=== PATIENT | female | born 2000 | race Caucasian/White ===

== ENCOUNTER 2023-03-28 19:06 | Emergency (ER) | payer MEDICAID, OTHER ==
[~2023-03-28] VITALS: Ht 177.8 cm; Wt 63.9 kg
[2023-03-28] MEDS ORDERED: ACETAMINOPHEN 325 MG TAB PO ONE (19:45)
[2023-03-28 20:12] LABS: Urine Bacteria FEW /hpf (None Seen); Urine Blood Negative /uL (Negative); Urine Clarity HAZY (Clear); Urine Color Yellow (Yellow); Urine Mucus FEW (None Seen); Urine Protein, UAD Negative (Negative); Urine Specific Gravity 1.019 (1.001-1.035); Urine Urobilinogen Normal (Negative); Urine WBC 18 /hpf (0 - 5); Urine pH 5.5 (5.0-8.0)
[2023-03-28] MEDS ORDERED: NITR-87 PO (21:09)
[2023-03-28 21:33] VITALS: BP 110/70; PULSE 80; RESP 18; TEMP 97.8; O2SAT 98
== END 2023-03-28 21:35 | disposition home or self-care (01) ==
LOC: ER 19:06
DX: O23.41 Unspecified infection of urinary tract in pregnancy, first trimester (principal); R10.2 Pelvic and perineal pain; N39.0 Urinary tract infection, site not specified; Z3A.01 Less than 8 weeks gestation of pregnancy; V43.62XA Car passenger injured in collision with other type car in traffic accident, initial encounter; Y93.89 Activity, other specified; Y92.488 Other paved roadways as the place of occurrence of the external cause; Y99.8 Other external cause status
CPT/HCPCS: 36415; 81001; 84702

== ENCOUNTER 2023-05-10 16:41 | Emergency (ER) | payer MEDICAID, OTHER ==
[~2023-05-10] VITALS: Ht 177.8 cm; Wt 63.0 kg
[~2023-05-10 16:41] MED LIST: NITR-87 PO
[2023-05-10 17:11] VITALS: BP 122/93; PULSE 123; RESP 18; TEMP 97.9; O2SAT 97
[2023-05-10] MEDS ORDERED: DIPH25CA66 PO (17:25)
[2023-05-10] MEDS ORDERED: AZIT-81 PO (17:25)
== END 2023-05-10 17:31 | disposition home or self-care (01) ==
LOC: ER 16:41
DX: O99.511 Diseases of the respiratory system complicating pregnancy, first trimester (principal); J03.90 Acute tonsillitis, unspecified; R09.81 Nasal congestion; Z3A.12 12 weeks gestation of pregnancy; Z79.899 Other long term (current) drug therapy

== ENCOUNTER 2025-08-09 11:14 | Emergency (ER) | payer SELFPAY, MEDICAID ==
[~2025-08-09] VITALS: Ht 175.3 cm; Wt 102.5 kg
[~2025-08-09 11:14] MED LIST changes: +AZIT-185 PO; +DIPH25CA66 PO
--- NOTE | 2025-08-09 12:06 | ED.PDOC ---
History of Present Illness HPI Comments This is a 25-year old female who came to the ED with the chief complaint of abdominal cramping. She started having breast tenderness and nausea one week back and abdominal cramping intermittently since yesterday. She states she did a home test last week which was positive and her LMP is 06/24/25. She also mentions having 3 home tests positive in March 2025, post which she had normal menstrual periods for 2-3 months. She denies passing any clots. Chief Complaint: Time Seen by MD: 11:50 Allergies: Coded Allergies: NO KNOWN ALLERGIES (Unverified , 03/28/23) Home Meds Active Scripts Diphenhydramine Hcl (Benadryl Allergy) 25 Mg Cap, 25 MG PO BID, #24 CAP Prov:ANDRÉS GUEVARA 05/10/23 Azithromycin (ZITHROMAX TABLET) 250 Mg Tb, 250 MG PO DAILY, #6 TAB Prov:ANDRÉS GUEVARA 05/10/23 Nitrofurantoin Monohydrate Mac (Macrobid) 100 Mg Cap, 100 MG PO BID for 5 Days, #10 CAP Prov:JEWELL KRUEGER PAC 03/28/23 Information Source: Patient Mode of Arrival: Ambulatory Severity: Mild Timing: Hours Duration: Since onset Prehospital treatment: None Past Medical History PAST MEDICAL HISTORY: Denies Surgical History: Denies all surgeries CANDY FEEDER History: No Pertinent CANDY FEEDER History Family History Family History: Reviewed,noncontributory to illness, No family hx of Cancer, No family hx of DM, No family hx of Heart abdirahman, No family hx of HTN, No family hx ofKidney abdirahman, No family hx of Liver abdirahman, No family hx of Lung abdirahman, No family hx of Stroke Social History Smoker: Non-Smoker Alcohol: Denies ETOH Use Drugs: Denies Drug Use Lives In: Home Constitutional: denies: chills, diaphoresis, fatigue, fever, malaise, sweats, weakness, others EENTM: denies: blurred vision, double vision, ear bleeding, ear discharge, ear drainage, ear pain, ear ringing, eye pain, eye redness, hearing loss, mouth pain, mouth swelling, nasal discharge, nose bleeding, nose congestion, nose pain, photophobia, tearing, throat pain, throat swelling, voice changes, others Respiratory: denies: cough, hemoptysis, orthopnea, SOB at rest, shortness of breath, SOB with excertion, stridor, wheezing, others Cardiovascular: denies: chest pain, dizzy spells, diaphoresis, Dyspnea on exe rtion, edema, irregular heart beat, left arm pain, lightheadedness, palpitations, PND, syncope, others Gastrointestinal: reports: abdominal pain, nausea; denies: abdomen distended, blood streaked bowels, constipated, diarrhea, dysphagia, difficulty swallowing, hematemesis, melena, poor appetite, poor fluid intake, rectal bleeding, rectal pain, vomiting, others Genitourinary: reports: ; denies: abnormal vagina bleeding, burning, dyspareunia, dysuria, flank pain, frequency, hematuria, incontinence, pain, vagina discharge, urgency, others Neurological: denies: dizziness, fainting, headache, left sided numbness, left sided weakness, numbness, paresthesia, pre-existing deficit, right sided numbness, right sided weakness, seizure, speech problems, tingling, tremors, weakness, others Musculoskeletal: denies: back pain, gout, joint pain, joint swelling, muscle pain, muscle stiffness, neck pain, others Integumetry: denies: bruises, change in color, change in hair/nails, dryness, laceration, lesions, lumps, rash, wounds, others Allergic/Immunocompromised: denies: Difficulty Healing, Frequent Infections, Hives, Itching, others Hematologic/Lymphatic: denies: anemia, blood clots, easy bleeding, easy bruising, swollen glands, others Endocrine: denies: excessive hunger, excessive sweating, excessive thirst, excessive urination, flushing, intolerance to cold, intolerance to heat, unexplained weight gain, unexplained weight loss, others Psychiatric: denies: anxiety, bipolar disorder, depression, hopeless, panic dis order, schizophrenia, sleepless, suicidal, others Physical Exam General Appearance: Normal HEENT: Normal ENT Inspection Neck: Non-Tender, Normal Inspection Respiratory: Lungs Clear, No Respiratory Distress, Normal Breath Sounds Cardiovascular: No Edema, No Murmur, Normal Peripheral Pulses Breast Exam: (R) Tenderness, (L) Tenderness Gastrointestinal: Diffuse, Normal Bowel Sounds, Tenderness Genitalia: Deferred Pelvic: Deferred, No Masses Rectal: Deferred Extremities: Normal capillary refill, Normal inspection, Normal range of motion, Non-tender, No pedal edema Neurologic: No Motor Deficits, No Sensory Deficits Cerebellar Function: Normal Reflexes: Normal Skin: Normal Color Lymphatic: No Adenopathy Was a procedure done? Was a procedure done?: No Differential Dx Considerations may include: miscarriage, ectopic X-Ray, Labs, Meds, VS Vital Signs Date Time Temp Pulse Resp B/P (MAP) Pulse Ox O2 Delivery O2 Flow Rate FiO2 08/09/25 11:19 97.8 98 17 145/91 98 97.8 Time of 1ST Reevaluation: 12:06 Reevaluation 1ST: Unchanged Patient Education/Counseling: Diagnosis, Treatment, Prognosis Family Education/Counseling: No Family Present SEPSIS Sepsis Screen Date sepsis recognized/suspect: Aug 09, 2025 Time Sepsis recognized/suspect: 1117 Recent Procedure: No On Antibiotic Therapy: No Respiratory Rate >20: No Heart Rate >90: Yes Temp<36 C (96.8 F) or >38.3 C: No SBP <90 or MAP <65 mmHG: No New Acute Mental Status Change: No Is the patient on CPAP, BIPAP,: No Physician Orders Complete Blood Count (08/09/25 11:55) Basic Metabolic Panel (08/09/25 11:55) Test, Urine (08/09/25 11:55) Vital Signs Date Time Temp Pulse Resp B/P (MAP) Pulse Ox O2 Delivery O2 Flow Rate FiO2 08/09/25 11:19 97.8 98 17 145/91 98 97.8 Departure 1 Departure Time of Disposition: 12:00 Impression: Primary Impression: Miscarriage Additional Impressions: Ectopic Normal Disposition: 30 STILL A PATIENT Condition: Fair Critical Care Note Critical Care Time?: No Stability Stability form required: ANGELITA Harrell RESIDENT Aug 09, 2025 12:06
[2025-08-09 12:17] LABS: Hematocrit 38.7 % (36.0-46.0); Hemoglobin 13.2 g/dL (12.2-16.2); Mean Corpuscular Hemoglobin 32.7 pg (28.0-32.0); Mean Corpuscular Volume 96.1 fL (80.0-100.0); Nucleated Red Blood Cells % 0.0 %
[2025-08-09 12:31] LABS: Potassium 4.2 mmol/L (3.5-5.1); Sodium 140 mmol/L (136-145)
[2025-08-09 12:32] LABS: Anion Gap 8 (5-15); Calcium 10.0 mg/dL (8.7-10.4); Carbon Dioxide 25 mmol/L (20-31)
[2025-08-09 12:33] LABS: Chloride 107 mmol/L (98-107)
[2025-08-09 12:37] LABS: BUN/Creatinine Ratio 8.1 (10.0-20.0); Blood Urea Nitrogen < 5 mg/dL (9-23); Glucose 91 mg/dL (74-106)
[2025-08-09 15:08] LABS: Urine Protein, UAD TRACE (Negative)
--- NOTE | 2025-08-09 15:55 | DVH ---
OB ULTRASOUND <14 WEEKS: HISTORY: cramping TECHNIQUE: Multiple real-time grayscale sonographic images of the pelvis with duplex Doppler color flow, spectral and M-mode analysis. TRANSDUCERS: Transabdominal and transvaginal COMPARISON: US OB LIMITED on DOS: 11/11/23, US OB LIMITED on DOS: 07/08/23 FINDINGS: The uterus measures 9.2 x 5.4 x 4.4 cm. Endometrium measures 1.8 cm. The cervix is not visualized Right ovary is not visualized Left ovary measures 3.0 x 2.1 x 1.9 cm with normal Doppler color flow. Possible early IUP single fetus gestational sac size of 0.5 cm heart rate detected at n/a beats per minute. Yolk sac is present. Amniotic fluid is subjectively within normal limits Neena-gestational space: Unremarkable IMPRESSION: Gestational sac within the uterus with no identifiable pole. This may be business office representative of a blighted versus early . Correlation with follow-up beta hCG levels. Follow-up ultrasound could be performed if clinically indicated.
--- NOTE | 2025-08-09 15:55 | DVH ---
OB ULTRASOUND <14 WEEKS: HISTORY: cramping TECHNIQUE: Multiple real-time grayscale sonographic images of the pelvis with duplex Doppler color flow, spectral and M-mode analysis. TRANSDUCERS: Transabdominal and transvaginal COMPARISON: US OB LIMITED on DOS: 11/11/23, US OB LIMITED on DOS: 07/08/23 FINDINGS: The uterus measures 9.2 x 5.4 x 4.4 cm. Endometrium measures 1.8 cm. The cervix is not visualized Right ovary is not visualized Left ovary measures 3.0 x 2.1 x 1.9 cm with normal Doppler color flow. Possible early IUP single fetus gestational sac size of 0.5 cm heart rate detected at n/a beats per minute. Yolk sac is present. Amniotic fluid is subjectively within normal limits Neena-gestational space: Unremarkable IMPRESSION: Gestational sac within the uterus with no identifiable pole. This may be pest control service representative of a blighted versus early . Correlation with follow-up beta hCG levels. Follow-up ultrasound could be performed if clinically indicated.
[2025-08-09 16:18] VITALS: BP 118/86; PULSE 87; RESP 18; TEMP 97.5; O2SAT 99
== END 2025-08-09 16:28 | disposition home or self-care (01) ==
LOC: ER 11:14
DX: O03.9 Complete or unspecified spontaneous abortion without complication (principal); O00.90 Unspecified ectopic pregnancy without intrauterine pregnancy; Z79.899 Other long term (current) drug therapy; Z3A.00 Weeks of gestation of pregnancy not specified
CPT/HCPCS: 36415; 76801; 76817; 80048; 81001; 81025; 85025